=== PATIENT | female | born 1965 | race African-American/Black ===

== ENCOUNTER 2018-12-26 17:55 | Emergency (ER) | payer OTHER ==
--- NOTE | 2018-12-26 18:19 | PDOC ---
History of Present Illness - General History Source: Patient - History of Present Illness Initial Comments: 12/26/18 18:30 Pt presents to the ED complaining of a two day history of intermittent L sided headaches along with blurry vision in the L eye. History of chiari malformation , which she states gives her chronic headaches, but states that this pain is different in location, character and intensity than her previous headaches. States that the pain is sharp, 8/10 in severity and travels from the left side of the face to her left scalp. Patient also reports intermittent blurry vision that "feels like something is in my eye". Denies diplopia or photophobia. reports that she was recently seen by talent acquisition assistant and prescribed new glasses that she had to return because they "gave her a headache". Denies balance or gait disturbance. Denies vertigo. 12/26/18 18:37 12/26/18 18:46 <Cierra Lepe - Last Filed: 12/26/18 18:46> <Garett Olivares - Last Filed: 12/26/18 19:58> - General Chief Complaint: Migraine Headache Stated Complaint: LEFT SIDE HEADACHE Time Seen by Provider: 12/26/18 18:18 Past History <Cierra Lepe - Last Filed: 12/26/18 18:46> <Garett Olivares - Last Filed: 12/26/18 19:58> - Past Medical History Allergies/Adverse Reactions: Allergies Allergy/AdvReac Type Severity Reaction Status Date / Time No Known Allergies Allergy Verified 12/26/18 17:57 Home Medications: Ambulatory Orders Amlodipine Besylate 10 mg PO DAILY 12/26/18 Atorvastatin Ca [Lipitor] 80 mg PO HS 12/26/18 Lisinopril/Hydrochlorothiazide [Lisinopril-Hctz 20-12.5 mg Tab] 1 tab PO DAILY 12/26/18 Metformin HCl [Glucophage] 500 mg PO BID 12/26/18 Review of Systems - Review of Systems Able to Perform ROS?: Yes Is the patient limited [place] proficient: No Constitutional: No: Symptoms Reported, See HPI, Chills, Diaphoresis, Fever, Loss of Appetite, Malaise, Night Sweats, Weakness, Weight Stable, Unintentional Wgt. Loss, Unexplained wgt Loss, Other HEENTM: Yes: Eye Pain, Blurred Vision. No: Symptoms Reported, See HPI, Tearing , Recent change in vision, Double Vision, Cataracts, Ear Pain, Ocular Prothesis , Ear Discharge, Nose Pain, Nose Congestion, Tinnitus, Nose Bleeding, Hearing Loss, Throat Pain, Throat Swelling, Mouth Pain, Dental Problems, Difficulty Swallowing, Mouth Swelling, Other Respiratory: No: Symptoms reported, See HPI, Cough, Orthopnea, Shortness of Breath, SOB with Exertion, SOB at Rest, Stridor, Wheezing, Productive cough, Hemoptysis, Other Cardiac (ROS): No: Symptoms Reported, See HPI, Chest Pain, Edema, Irregular Heart Rate, Lightheadedness, Palpitations, Syncope, Chest Tightness, Other ABD/GI: No: Symptoms Reported, See HPI, Abdominal Distended, Abd. Pain w/ defecation, Blood Streaked Bowels, Constipated, Diarrhea, Difficulty Swallowing , Nausea, Poor Appetite, Poor Fluid Intake, Rectal Bleeding, Vomiting, Indigestion, Abdominal cramping, Tarry Stools, Other : No: Symptoms Reported, See HPI, Burning, Dysuria, Discharge, Frequency, Flank Pain, Hematuria, Incontinence, Pain, Urgency, Testicular Mass, Testicular Swelling, Lesions, Testicular Pain, Other Musculoskeletal: No: Symptoms Reported, See HPI, Back Pain, Gout, Joint Pain, Joint Swelling, Muscle Pain, Muscle Weakness, Neck Pain, Joint Stiffness, Other Neurological: Yes: Headache. No: Symptoms reported, See HPI, Numbness, Paresthesia, Pre-Existing Deficit, Seizure, Tingling, Tremors, Weakness, Unsteady Gait, Ataxia, Dizziness, Other Psychiatric: No: Anxiety, Depression, Frequent Crying, Stressors, Sleep Pattern Change, Emotional Problems, Mood Swings, Change in Appetite, Other All Other Systems: Reviewed and Negative <Cierra Lepe - Last Filed: 12/26/18 18:46> *Physical Exam - Physical Exam Comments: 12/26/18 18:38 gen: alert, NAD HEENT: EOMI. head normocephalic, atraumatic. Visual acuity 20/30 b/l with glasses CV: rrr no m/r/g Pulm: cta b/l abdomen: soft, non tender, non distended, without guarding or rebound ext: no edema or deformity. neuro: alert and oriented x 3, ambulatory with a steady gait, CN grossly intact , speech fluent and clear. <Cierra Lepe - Last Filed: 12/26/18 18:46> - Vital Signs Last Vital Signs Temp Pulse Resp BP Pulse Ox 98.3 F 70 20 128/81 98 12/26/18 17:56 12/26/18 17:56 12/26/18 17:56 12/26/18 17:56 12/26/18 17:56 <Garett Olivares - Last Filed: 12/26/18 19:58> ED Treatment Course - Medications Given in the ED: ED Medications Discontinued Medications Generic Name Dose Route Start Last Admin Trade Name Ace PRN Reason Stop Dose Admin Acetaminophen 1,000 mg 12/26/18 18:28 12/26/18 18:36 Tylenol - PO 12/26/18 18:29 1,000 mg ONCE ONE Administration <Garett Olivares - Last Filed: 12/26/18 19:58> Medical Decision Making - Medical Decision Making 12/26/18 18:40 pt presents to the Ed complaining of a one day history of L sided headache. Unlikely subarachnoid given the nature of her symptoms. May be secondary to chiari malformation, but given that her symptoms are different from her previous headaches, I will check CT head to rule out tumor, bleed or other intracranial lesions. <Cierra Lepe - Last Filed: 12/26/18 18:46> - Medical Decision Making 12/26/18 19:53 received on sign out to me describes L facial and scalp "tightness" but not pain, no objective sensory deficit on exam has neuro fu in place <Garett Olivares - Last Filed: 12/26/18 19:58> Discharge <Cierra Lepe - Last Filed: 12/26/18 18:46> - Discharge Information Problems reviewed: Yes <Garett Olivares - Last Filed: 12/26/18 19:58> - Discharge Information Clinical Impression/Diagnosis: Headache Qualifiers: Headache type: unspecified Headache chronicity pattern: acute headache Intractability: not intractable Qualified Code(s): R51 - Headache Condition: Good - Patient Discharge Instructions Patient Printed Discharge Instructions: DI for Headache Additional Instructions: Please follow-up with your neurologist. Return to ER immediately if symptoms worsen
[2018-12-26] MEDS ORDERED: ACETAMINOPHEN 500 MG TABLET (FP) PO ONE (18:28)
[2018-12-26 18:32] VITALS: BP 128/81; PULSE 70; TEMP 98.3; BMI 36.1
[2018-12-26] MEDS ORDERED: ACETAMINOPHEN 500 MG TABLET (FP) ONE (18:34)
== END 2018-12-26 20:02 | disposition home or self-care (01) ==
LOC: FER 17:55
DX: R51 Headache (principal); Q07.00 Arnold-Chiari syndrome without spina bifida or hydrocephalus
CPT/HCPCS: 70450-TC; 99281-25